=== PATIENT | female | born 1980 | race Two or more races ===

== ENCOUNTER 2025-06-11 10:25 | Outpatient (CLI) | payer MEDICAID ==
--- NOTE | 2025-06-11 12:08 | RADIOLOGY REPORT ---
ULTRASOUND SOFT TISSUE HEAD AND NECK CLINICAL INDICATION: THYROID NODULE TECHNIQUE: Multiple real time sonographic images of the thyroid were obtained. Comparison: None FINDINGS: The right thyroid gland measures 4.8 x 2.2 x 2.2 cm. The left thyroid gland measures approximately 4.2 x 2.0 x 1.8 cm. The isthmus measures 0.3 cm. Isoechoic nodule in the left medial lower pole measures 0.6 cm, TR 3. IMPRESSION: 0.6 cm TR 3 nodule in the lower medial left thyroid. [employer] TI-RADS Categories and Recommendations (2017): TR1: 0 points, Benign, No FNA TR2: 2 points, Not suspicious, No FNA TR3: 3 points, Mildly suspicious, FNA if > or = 2.5 cm, Follow if > or = 1.5 cm TR4: 4-6 points, Moderately Suspicious, FNA if > or = 1.5 cm, Follow if > or = 1.0 cm TR5: 7+ points, Highly Suspicious, FNA if > or = 1.0 cm, Follow if > or = 0.5 cm Follow-up ultrasound guidelines: TR5: yearly for 5 years, if no growth or change in TI-RADS level TR4: at 1, 2, 3 and 5 years, if no growth or change in TI-RADS level TR3: at 1, 3 and 5 years, if no growth or change in TI-RADS level If increased but below threshold for FNA, repeat in one year. Source: ACR Thyroid Imaging, Reporting and Data System (TI-RADS): White Paper of the A[employer] TI-RADS Committee. Julian et al., J Am Lovely Radiol 2017;14:587-595.
== END 2025-06-11 23:59 | disposition home or self-care (01) ==
LOC: RAD 10:25
DX: E04.1 Nontoxic single thyroid nodule (principal)
CPT/HCPCS: 76536